=== PATIENT | female | born 1960 | race Caucasian/White ===

== ENCOUNTER 2023-10-19 08:17 | Emergency (ER) | payer OTHER ==
[2023-10-19] MEDS ORDERED: Boostrix 0.5 ML (Tdap) VIAL (>/=7 yrs of age) ONE (09:32)
[2023-10-19] MEDS ORDERED: Carvedilol 6.25 MG TAB ONE (09:42)
== END 2023-10-19 11:06 | disposition home or self-care (01) ==
LOC: ERS 08:17
DX: S90.852A Superficial foreign body, left foot, initial encounter (principal); I10 Essential (primary) hypertension; Z23 Encounter for immunization; W45.8XXA Other foreign body or object entering through skin, initial encounter
CPT/HCPCS: 64450; 90471; 90715